=== PATIENT | male | born 1950 | race Caucasian/White ===

== ENCOUNTER 2018-03-26 11:44 | Day surgery (SDC) | payer MEDICARE ==
[2018-03-20 12:54] VITALS: BMI 24.0
[~2018-03-26 11:44] MED LIST: DEXAMETHASONE SOD PHOSPHATE 10 MG/ML 1 ML VIAL IV ONE; LACTATED RINGERS 1,000 ML IV SCH; LIDOCAINE 1% 20 ML VIAL (10MG/ML) FOR IV START INTRADERMA PRN; MIDAZOLAM 2 MG/2 ML VIAL IV PRN; ONDANSETRON 4 MG/2 ML VIAL IVP ONE; Pre Op ABX Message 1 EACH MISC MISCELLANE ONE; fentaNYL (PF) 50 MCG/ML 2 ML AMP IV PRN
[2018-03-26 13:02] VITALS: RESP 16; TEMP 97.9
[2018-03-26 13:23] LABS: Glucose,Whole Blood 148 mg/dL (75-99)
[2018-03-26] MEDS ORDERED: ROPIVACAINE 5 MG/ML 30 ML VIAL MISCELLANE ONE (14:05)
[2018-03-26] MEDS ORDERED: LIDOCAINE 2% (PF) 20 MG/ML 10 ML AMP SQ ONE ×2 (14:05)
[2018-03-26] MEDS ORDERED: PROPOFOL 10 MG/ML 20 ML VIAL IV ONE (14:08)
[2018-03-26] MEDS ORDERED: MIDAZOLAM 2 MG/2 ML VIAL ONE (14:08)
[2018-03-26] MEDS ORDERED: fentaNYL (PF) 50 MCG/ML 2 ML AMP ONE (14:08)
[2018-03-26] MEDS ORDERED: LIDOCAINE 1% INJ 10MG/ML (20 ML MDV) ONE (14:08)
[2018-03-26 15:14] LABS: Glucose,Whole Blood 155 mg/dL (75-99)
[2018-03-26 15:17] VITALS: BP 136/86; PULSE 63
--- NOTE | 2018-03-27 20:55 | OP ---
OPERATIVE REPORT SURGICAL DATE: 03/26/2018 PREOPERATIVE DIAGNOSIS: Mass first webspace, left hand. FINAL DIAGNOSIS: Mass first webspace, left hand. PROCEDURE: 1. Excision of mass, left hand. 2. Neurolysis ulnar digital nerve, left thumb. GROSS PATHOLOGY: This was a moderately well encapsulated white mass, 1 x 2 cm in diameter. It had several lobules which were basically attached together. It had disappeared and partially encompassed the ulnar digital nerve, which was able to be satisfactory neuro lysed and freed from the mass remaining intact along with the accompanying ulnar digital artery of the parent and the mass was sent to the lab for definitive histologic diagnosis. There did not appear to be any effect on the other surrounding structures. PROCEDURE: 67-year-old man was taken to operative suite, given IV sedation and I anesthetized the base of his left thumb with a modified digital block consisting of Marcaine and Xylocaine, both without epinephrine. His hand was prepped and draped in usual manner. The arm was elevated, exsanguinated and cuff was inflated to 250 mmHg. A zigzag incision was made across the 1st web space. The procedure was performed under 4.5 loupe magnification. Dissection was just taken carefully and meticulously. The mass was noted to be adhered and partially encompassing the ulnar digital nerve and vessel. These structures were satisfactorily neuro lysed and from the mass with no apparent harm. The mass was then from the surrounding tissue and was relatively well encapsulated. As stated above there were no other signs of adjacent tissue damage or penetration. The wound was then irrigated. Tourniquet was released. Hemostasis was satisfactory. Wound was closed with 5-0 nylon suture. Soft bulky dressing was applied. The patient was taken to recovery room in satisfactory condition. MMODL / IJN: [id number] /
== END 2018-03-26 15:28 | disposition home or self-care (01) ==
LOC: OR 11:44 → EDBD 14:20 → OR 15:28
PROVIDERS: ATTEND Orthopaedic Surgery Hand Surgery
DX: D21.12 Benign neoplasm of connective and other soft tissue of left upper limb, including shoulder (principal); I10 Essential (primary) hypertension; E11.9 Type 2 diabetes mellitus without complications; Z79.84 Long term (current) use of oral hypoglycemic drugs; Z94.0 Kidney transplant status; Z86.73 Personal history of transient ischemic attack (TIA), and cerebral infarction without residual deficits; Z79.82 Long term (current) use of aspirin; Z79.52 Long term (current) use of systemic steroids; Z79.899 Other long term (current) drug therapy; Z88.5 Allergy status to narcotic agent
CPT/HCPCS: 88305; 26160; J2250; J1100; J2001 ×2; J2405; J3010; J2795; J2704